=== PATIENT | male | born 1990 | race Caucasian/White ===

== ENCOUNTER 2018-03-02 16:09 | Emergency (ER) | payer SELFPAY ==
[~2018-03-02] VITALS: Ht 180.3 cm; Wt 66.2 kg
[2018-03-02 16:23] VITALS: BP 137/80
--- NOTE | 2018-03-02 16:30 | NUR ---
Patient ambulated to bed 1 with family. RN evaluating patient at bedside.
--- NOTE | 2018-03-02 16:32 | NUR ---
27/ M BIB GIRLFRIEND, C/O OF HEADACHE IN THE BACK OF HIS HEAD. PAIN 8/10 X 3DAYS, INTERMITTENT ACHE, HAS TAKEN TYLENOL, STATES INEFFECTIVE. REPORTS A STRESSFUL WEEK OCCASIONAL DIZZINESS, BUT NOT AT THIS TIME, DENIES INJURY/ TRUAMA, NO N/V/D, BLURRY VISION, NO NUCHAL RIGITIY. A0X4, STEADY GAIT. .
[2018-03-02] MEDS ORDERED: IBUPROFEN 400 MG TAB PO ONE (16:55)
[2018-03-02] MEDS ORDERED: LIDOCAINE 1% 500 MG/50 ML VIAL INJ SCH (16:55)
[2018-03-02] MEDS ORDERED: LIDOCAINE MPF 1% - 5 mL VIAL 10 ML ONE (17:08)
--- NOTE | 2018-03-02 17:35 | NUR ---
Dr. Salcido at bedside doing a trigger point injection, 8cc of Xylocaine lower back of head. Patient sitting up, denies discomfort.
[2018-03-02 18:09] VITALS: BP 113/61
--- NOTE | 2018-03-02 18:09 | NUR ---
Patient discharged with v/s stable. Written and verbal after care instructions given and explained. Patient alert, oriented and verbalized understanding of instructions. Ambulatory with steady gait. All questions addressed prior to discharge. ID band removed. Patient advised to follow up with PMD. Rx of CANDI given. Patient educated on indication of medication including possible reaction and side effects. Opportunity to ask questions provided and answered.
== END 2018-03-02 18:09 | disposition home or self-care (01) ==
LOC: MED 16:09
DX: G44.209 Tension-type headache, unspecified, not intractable (principal); G47.00 Insomnia, unspecified; F43.9 Reaction to severe stress, unspecified
CPT/HCPCS: 99283; J2001

== ENCOUNTER 2020-12-25 18:07 | Emergency (ER) | payer MEDICAID ==
[~2020-12-25] VITALS: Ht 172.7 cm; Wt 73.9 kg
[2020-12-25 18:14] VITALS: BP 122/77
--- NOTE | 2020-12-25 18:17 | NUR ---
PT SENT TO LOBBY
--- NOTE | 2020-12-25 22:00 | NUR ---
PT AMBULATED TO BED #6
--- NOTE | 2020-12-25 22:02 | NUR ---
30 YO M BIB SELF WITH C/C OF 09/21 BURNING INTERMIT LOWER ABD PAIN X3WKS, NONRAD. +N/D, DEPENDING ON WHAT PT EATS PER PT. STATED HE FEELS BLOATED AT TIMES. ABD IS DISTENDED, ACTIVE BOWEL SOUNDS X4, AND TENDER TO TOUCH. DENIES VOMITING, CHILLS, FEVER. LAST BM WAS TODAY. DENIES BLOOD IN STOOL. DENIES URINARY CHANGES. PT GIVEN WARM BLANKET. ALL NEEDS MET AT THIS TIME. BED LOCKED IN LOWEST POSITION, SIDE RAILS X1. DENIES HX, RX AND ALLEG Addendum: 12/25/20 at 2220 by [facility] PT STATED HE TOOK PEPTO AND TYLENOL WITH NO RELIEF.
--- NOTE | 2020-12-25 22:57 | NUR ---
URINE SPECIMEN HANDED TO PT. DOES NOT HAVE TO URINATE AT THIS TIME.
[2020-12-25 23:09] LABS: BASOPHILS # (AUTO) 0.1 K/uL (0.00-0.22); EOSINOPHILS # (AUTO) 0.1 K/uL (0-0.4); EOSINOPHILS % (AUTO) 0.9 % (0.0-4.0); HEMATOCRIT 45.2 % (36-52); HEMOGLOBIN 15.7 g/dL (12.0-18.0); LYMPHOCYTES # (AUTO) 2.6 K/uL (2.0-11.5); LYMPHOCYTES % (AUTO) 31.8 % (20.5-51.1); MEAN CORPUSCULAR HEMOGLOBIN 30 pg (27-31); MEAN CORPUSCULAR HGB CONC 35 g/dL (33-37); MEAN CORPUSCULAR VOLUME 86.3 fL (80-94); MONOCYTES # (AUTO) 0.7 K/uL (0.8-1.0); MONOCYTES % (AUTO) 8.7 % (1.7-9.3); NEUTROPHILS # (AUTO) 4.7 K/uL (1.8-7.7); NEUTROPHILS % (AUTO) 57.6 % (42.2-75.2); PLATELET COUNT (AUTO) 318 K/uL (140-450); RED BLOOD CELL COUNT(AUTO) 5.24 MIL/uL (4.20-6.10); RED CELL DISTRIBUTION WIDTH 12.5 % (11.6-13.7); WHITE BLOOD COUNT (AUTO) 8.1 K/uL (4.8-10.8)
[2020-12-25 23:18] LABS: APPEARANCE,URINE CLEAR (CLEAR); BILIRUBIN,URINE 1+ (NEGATIVE); BLOOD, URINE TRACE-I (NEGATIVE); COLOR,URINE YELLOW (YELLOW); LEUKOCYTE ESTERASE ,URINE NEGATIVE (NEGATIVE); NITRITE, URINE NEGATIVE (NEGATIVE); PH,URINE 6.5 (5.0-9.0); UGLUCOSE NEGATIVE (NEGATIVE)
[2020-12-25 23:24] LABS: RBC,URINE 0-5 /HPF (0-5); WBC,URINE 0-5 /HPF (0-5)
[2020-12-25] MEDS: MORPHINE SULFATE 4 MG/ML SYR IVP ONE (23:28)
--- NOTE | 2020-12-25 23:41 | NUR ---
US AT BEDSIDE.
[2020-12-25 23:55] LABS: ANION GAP 14.9 (8-16); CARBON DIOXIDE 28.6 mmol/L (21-32); POTASSIUM 3.5 mmol/L (3.5-5.1)
[2020-12-25 23:59] LABS: CREATININE 0.8 mg/dL (0.6-1.3)
[2020-12-26] LABS: ALBUMIN 4.6 g/dL (3.4-5.0); TOTAL BILIRUBIN 0.5 mg/dL (0.0-1.0)
--- NOTE | 2020-12-26 00:33 | NUR ---
PT IS SLEEPING, EYES ARE CLOSED OPENS TO SOUND. EQUAL RISE AND FALL OF CHEST WALL. VSS. PT IS IN STABLE CONDITION. BED LOCKED IN LOWEST POSITION, SIDE RAILS X2.
[2020-12-26] MEDS ORDERED: BEN10 PO (01:27)
[2020-12-26] MEDS ORDERED: LOPE1TAB14 PO (01:27)
[2020-12-26 01:48] VITALS: BP 110/67
--- NOTE | 2020-12-26 01:48 | NUR ---
Patient discharged with v/s stable. Written and verbal after care instructions given and explained. Patient alert, oriented and verbalized understanding of instructions. Ambulatory with steady gait. All questions addressed prior to discharge. ID band removed. Patient advised to follow up with PMD. Rx of BENTYL AND IMODIUM given. Patient educated on indication of medication including possible reaction and side effects. Opportunity to ask questions provided and answered.
== END 2020-12-26 01:48 | disposition home or self-care (01) ==
LOC: MED 18:07
DX: R10.30 Lower abdominal pain, unspecified (principal); R19.7 Diarrhea, unspecified; Z79.899 Other long term (current) drug therapy
CPT/HCPCS: 36415; 76705; 80053; 81001; 83690; 85025; 86140; 96374; 99284; J2270; Q0092